=== PATIENT | male | born 1940 | race Caucasian/White ===

== ENCOUNTER → 2016-07-26 | Outpatient (REF) | payer MEDICARE ==
[~2016-07-26] MED LIST: ACET30TAB PO; ASPI-85 PO; ASPI81TA11 PO; CIPR500S PO; CLONPOW23 PO; COUM1TAB17 PO; DIGI1TAB3 PO; DIGO25TA PO; ENAL20TA PO; ENALAPRIL PO; GLIP5TAB15 PO; GLIPPOW PO; GLUC1CAP9 PO; GLUCOSAMINE PO; HYDROCHLOROTHIZIDE PO; KLON0.5T PO; METFORMIN PO; PROP80TA PO; PROPRANOLOL PO; SIMV40TA2 PO; SIMVPOW2 PO; WARF-22 PO; WARF-23 PO; WARFARIN PO
== END ==
LOC: M SMT 12:45
PROVIDERS: ATTEND Urology
DX: Z85.51 Personal history of malignant neoplasm of bladder (principal)

== ENCOUNTER → 2016-08-18 | Day surgery (SDC) | payer MEDICARE ==
[~2016-08-18] VITALS: Ht 167.6 cm; Wt 73.0 kg
[~2016-08-18] MED LIST changes: +LEVA500T PO; +LIDOCAINE 2% INJ 100 MG/5 ML SDV (FOR ANES.) As Ordered ONE; +LR 1,000 ML IV SCH; +MIDAZOLAM INJ 2 MG/2 ML VIAL (J2250) As Ordered ONE; +ONDANSETRON 4MG/2ML VIAL (J2405) As Ordered ONE; +ONDANSETRON 4MG/2ML VIAL (J2405) IV PRN; +PERCOCET 5MG/325MG TAB PO PRN; +PROPOFOL 200 MG/20 ML VIAL As Ordered ONE; +TYLE650T35 PO; +ePHEDrine SULFATE 25 MG/5 ML(5MG/ML) SYRINGE As Ordered ONE; +fentaNYL 100 MCG/2 ML INJECTION (J3010) As Ordered ONE; +fentaNYL 100 MCG/2 ML INJECTION (J3010) IV PRN; +mitoMYcin 40 MG VIAL (J9280) INTRAVESIC ONE
[2016-08-18 09:25] LABS: INR 1.1
[2016-08-18 15:30] VITALS: BP 152/66
--- NOTE | 2016-08-20 13:53 | RO ---
DATE OF PROCEDURE: 08/18/2016 PREOPERATIVE DIAGNOSIS: Papillary bladder tumor. POSTOPERATIVE DIAGNOSIS: Papillary bladder tumor. SURGERY PERFORMED: Cystoscopy, plus bipolar transurethral resection of bladder tumor, plus exam under anesthesia, plus mitomycin C instillation 40 mg. SURGEON: Dr. Jose F Aldridge [employer] CONCRETE IRONWORKER: Dr. Jose Paulino, Resident, PGY-3 ANESTHESIA: General. COMPLICATIONS: None. ESTIMATED BLOOD LOSS: N/A. HISTORY OF PRESENT ILLNESS: 76-year-old male patient with a history of bladder cancer. He has recurrent bladder cancer. For this reason, we have consented him for a cystoscopy plus bilateral transurethral resection of bladder tumor (TURBT), plus exam under anesthesia, plus mitomycin C instillation. PROCEDURE DESCRIPTION: In a patient under general anesthesia in supine modified low lithotomy position, after prepping and draping the area of concern, which included the entire genitalia and abdomen, we introduced a cystoscope, #21-Armenian in diameter with a 30-degree lens. The fossa navicularis, penile urethra, bulbar urethra, membranous urethra, and prostatic urethra were totally normal. The bladder had now both ureteral orifice draining clear urine. Had a left diverticulum on the left side. The right lateral wall had a papillary tumor of about 2 cm in diameter. It was resected, and there was scar tissue in the dome of the bladder that was also resected for about 1 cm in diameter. All this tissue was sent for permanent pathology analysis. We then fulgurated the bladder and then placed a Valentino catheter, #20-Armenian, three-way, clamped the third way; and then after emptying the bladder, we actually placed the mitomycin C 40 mg into the bladder and clamped the Valentino catheter. PLAN: The patient will pass to recovery. He will have to contain the mitomycin C in his bladder for about 1-2 hours, switching position into right decubitus lateral, left decubitus lateral, prone, and supine every 15 minutes. Once this is performed, we will empty, put the Valentino to gravity, and connect the bag. He will go home with a Valentino catheter to gravity. He can come back on Tuesday for a voiding trial. He is going home with antibiotic and pain medication, also. There were no complications during surgery.
== END | disposition home or self-care (01) ==
LOC: M SDC 08:17
PROVIDERS: ATTEND Urology
DX: C67.9 Malignant neoplasm of bladder, unspecified (principal); I10 Essential (primary) hypertension; I48.91 Unspecified atrial fibrillation; E11.9 Type 2 diabetes mellitus without complications; G20 Parkinson's disease; E78.00 Pure hypercholesterolemia, unspecified; M12.9 Arthropathy, unspecified; C62.90 Malignant neoplasm of unspecified testis, unspecified whether descended or undescended; I69.320 Aphasia following cerebral infarction; Z79.899 Other long term (current) drug therapy; Z79.01 Long term (current) use of anticoagulants; Z92.21 Personal history of antineoplastic chemotherapy; Z96.651 Presence of right artificial knee joint; Z96.642 Presence of left artificial hip joint
CPT/HCPCS: 36415; 51720; 52224; 85610; 86850; 88305; J0690; J2250; J2405; J3010; J9280

== ENCOUNTER → 2016-11-22 | Outpatient (REF) | payer MEDICARE ==
[~2016-11-22] MED LIST changes: +ASPI-101 PO; -ASPI81TA11 PO; +GLIP1TAB49 PO; -GLIP5TAB15 PO; +LEVA1TAB2 PO; -LEVA500T PO; -LIDOCAINE 2% INJ 100 MG/5 ML SDV (FOR ANES.) As Ordered ONE; -LR 1,000 ML IV SCH; -MIDAZOLAM INJ 2 MG/2 ML VIAL (J2250) As Ordered ONE; -ONDANSETRON 4MG/2ML VIAL (J2405) As Ordered ONE; -ONDANSETRON 4MG/2ML VIAL (J2405) IV PRN; -PERCOCET 5MG/325MG TAB PO PRN; -PROPOFOL 200 MG/20 ML VIAL As Ordered ONE; -ePHEDrine SULFATE 25 MG/5 ML(5MG/ML) SYRINGE As Ordered ONE; -fentaNYL 100 MCG/2 ML INJECTION (J3010) As Ordered ONE; -fentaNYL 100 MCG/2 ML INJECTION (J3010) IV PRN; -mitoMYcin 40 MG VIAL (J9280) INTRAVESIC ONE
== END ==
LOC: M LAB REF 13:26
PROVIDERS: ATTEND Urology
DX: C67.9 Malignant neoplasm of bladder, unspecified (principal)

== ENCOUNTER → 2017-02-21 | Outpatient (REF) | payer MEDICARE | LOC: M SMT 17:11 | PROVIDERS: ATTEND Urology | DX: C67.9 Malignant neoplasm of bladder, unspecified (principal) ==

== ENCOUNTER → 2017-07-04 | Outpatient (REF) | payer MEDICARE | LOC: M SMT 16:59 | DX: Z85.51 Personal history of malignant neoplasm of bladder (principal) | CPT/HCPCS: 88108 ==

== ENCOUNTER 2018-01-25 11:45 | Day surgery (SDC) | payer MEDICARE ==
[~2018-01-25 11:45] MED LIST changes: -ACET30TAB PO; -ASPI-101 PO; -ASPI-85 PO; -CIPR500S PO; -CLONPOW23 PO; -COUM1TAB17 PO; -DIGI1TAB3 PO; -DIGO25TA PO; -ENAL20TA PO; -ENALAPRIL PO; -GLIP1TAB49 PO; -GLIPPOW PO; -GLUC1CAP9 PO; -GLUCOSAMINE PO; -HYDROCHLOROTHIZIDE PO; -KLON0.5T PO; -LEVA1TAB2 PO; +LIDOCAINE 1% MDV 20ML VIAL SQ; -METFORMIN PO; -PROP80TA PO; -PROPRANOLOL PO; -SIMV40TA2 PO; -SIMVPOW2 PO; -TYLE650T35 PO; -WARF-22 PO; -WARF-23 PO; -WARFARIN PO
[2018-01-25 12:21] LABS: INR 1.04; PROTHROMBIN TIME 13.7 SECONDS (12.1-14.4)
[2018-01-25 12:29] LABS: BEDSIDE GLUCOSE 181 MG/DL (83-110)
[2018-01-25] MEDS: LR 1,000 ML IV (12:41)
[2018-01-25] MEDS ORDERED: GLYCOPYRROLATE INJ 0.2 MG/ML 2 ML VIAL As Ordered ×2 (13:28)
[2018-01-25] MEDS ORDERED: NEOSTIGMINE 10 MG/10 ML VIAL (J2710) As Ordered (13:28)
[2018-01-25] MEDS ORDERED: LIDOCAINE 2% INJ 100 MG/5 ML SDV (FOR ANES.) As Ordered (13:28)
[2018-01-25] MEDS ORDERED: ROCURONIUM BROMIDE 50 MG/5 ML VIAL As Ordered (13:28)
[2018-01-25] MEDS ORDERED: fentaNYL 100 MCG/2 ML INJECTION (J3010) As Ordered (13:28)
[2018-01-25] MEDS ORDERED: PROPOFOL 200 MG/20 ML VIAL As Ordered (13:28)
[2018-01-25] MEDS ORDERED: ONDANSETRON 4MG/2ML VIAL (J2405) As Ordered (13:28)
[2018-01-25] MEDS ORDERED: ONDANSETRON 4MG/2ML VIAL (J2405) IV (14:00)
[2018-01-25] MEDS ORDERED: NORCO, ANEXSIA 5/325MG TABLET (HYDROcodone/ACETAMINOPHEN) PO (14:00)
[2018-01-25] MEDS ORDERED: ACETAMINOPHEN 650MG ER TAB (TYLENOL ARTHRITIS) PO (14:00)
[2018-01-25] MEDS ORDERED: fentaNYL 100 MCG/2 ML INJECTION (J3010) IV (14:00)
[2018-01-25] MEDS ORDERED: LR 1,000 ML IV (14:00)
[2018-01-25] MEDS ORDERED: BACTRIM 160MG/800MG DS TAB PO (21:00)
== END 2018-01-25 15:44 | disposition home or self-care (01) ==
LOC: M SDC 11:45
DX: D49.4 Neoplasm of unspecified behavior of bladder (principal); I48.2 Chronic atrial fibrillation; I11.9 Hypertensive heart disease without heart failure; R94.31 Abnormal electrocardiogram [ECG] [EKG]; I35.0 Nonrheumatic aortic (valve) stenosis; I34.0 Nonrheumatic mitral (valve) insufficiency; I77.810 Thoracic aortic ectasia; I65.23 Occlusion and stenosis of bilateral carotid arteries; I70.1 Atherosclerosis of renal artery; E78.00 Pure hypercholesterolemia, unspecified; E11.9 Type 2 diabetes mellitus without complications; M12.9 Arthropathy, unspecified; I69.920 Aphasia following unspecified cerebrovascular disease; N40.0 Benign prostatic hyperplasia without lower urinary tract symptoms; Z79.899 Other long term (current) drug therapy; Z79.01 Long term (current) use of anticoagulants; Z79.82 Long term (current) use of aspirin; Z79.84 Long term (current) use of oral hypoglycemic drugs; Z85.51 Personal history of malignant neoplasm of bladder; Z92.21 Personal history of antineoplastic chemotherapy; Z85.49 Personal history of malignant neoplasm of other male genital organs; Z96.642 Presence of left artificial hip joint; Z96.651 Presence of right artificial knee joint; Z95.828 Presence of other vascular implants and grafts
CPT/HCPCS: 52224

== ENCOUNTER → 2018-05-02 | Outpatient (REF) | payer MEDICARE | LOC: M SMT 13:36 | DX: C67.9 Malignant neoplasm of bladder, unspecified (principal) | CPT/HCPCS: 88108 ==

== ENCOUNTER → 2018-09-18 | Outpatient (REF) | payer MEDICARE ==
[~2018-09-18] MED LIST changes: +ACET-716 PO; +ASPI-225 PO; +ASPI-85 PO; +ASPI81TA21 PO; +BACT800T5 PO; +CIPR500S PO; +CLONPOW23 PO; +COUM1TAB17 PO; +COUM7.5T PO; +DIGI1TAB3 PO; +DIGO25TA PO; +ENAL20TA PO; +ENALAPRIL PO; +GLIP5TAB20 PO; +GLIPPOW PO; +GLUC1CAP9 PO; +GLUCOSAMINE PO; +HYDR25TAB PO; +HYDROCHLOROTHIZIDE PO; +KLON0.5T PO; +LEVA1TAB2 PO; -LIDOCAINE 1% MDV 20ML VIAL SQ; +METF10004 PO; +METFORMIN PO; +PROP80TA PO; +PROPRANOLOL PO; +SIMV40TA2 PO; +SIMVPOW2 PO; +TYLE650T35 PO; +WARF-22 PO; +WARF-23 PO; +WARFARIN PO
== END ==
LOC: M SMT 17:00
PROVIDERS: ATTEND Urology
DX: C67.9 Malignant neoplasm of bladder, unspecified (principal)

== ENCOUNTER → 2018-12-11 | Outpatient (CLI) | payer MEDICARE ==
--- NOTE | 2018-12-11 18:37 | REP ---
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 Comparison study: December 19, 2013. Findings: Reversal of flow is seen in the right vertebral artery. Normal direction of flow was observed in the left vertebral artery. This raises a question of right sided subclavian stenosis, subclavian steal phenomenon. Right carotid: The right common carotid artery shows moderate mixed plaquing. There is extensive mixed plaquing in the bulb proximal ICA and proximal ECA on the right side on two-dimensional scanning. Color flow and spectral Doppler interrogation shows normal waveforms and velocities in the ICA. Stenotic flow velocities are observed in the ECA. Velocity chart right carotid: Right CCA PSV 87 cm/S right ICA PSV 120, BLAIR 45 right, ECA PSV 162, right ICA/CCA ratio 1.4. Right ICA Doppler velocities have not increased significantly from the prior study. Impression: Extensive mixed plaquing. 16-49% category narrowing by Doppler velocity criteria, probably near the upper portion of this range. Left carotid: Left common carotid artery shows moderate mixed plaquing. There is extensive mixed plaquing in the bulb, proximal ICA and proximal ECA on two-dimensional scanning on the left side. There is shadowing plaque which limits Doppler evaluation somewhat. A high velocity jet could not be identified but an area of slow flow in the mid ICA on the left raises concern for decreased flow post stenosis. Velocity chart left carotid: Left CCA PSV 116 cm/S, left ICA PSV 65, EDV 11, left ECA PSV 147, left ICA/CCA ratio 0.6. Impression: Slow flow in the left ICA with extensive calcific and mixed plaquing question slow flow post stenosis. Similar velocities were achieved previously. Consider CT or MR angiography. Electronically Signed by Sekou Jean Baptiste MD 12/12/2018 04:42 P
== END ==
LOC: M RAD 09:50
PROVIDERS: ATTEND Surgery Vascular Surgery
DX: I65.21 Occlusion and stenosis of right carotid artery (principal)

== ENCOUNTER → 2019-01-01 | Outpatient (REF) | payer MEDICARE ==
[~2019-01-01] MED LIST changes: +ASPI81TA85 PO; +ATEN50TA2 PO; +B COTAB3 PO; +DIGO0.25 PO; +GLIP-163 PO; +GLUCCAP23 PO; +JANT5TAB PO; +ROPI0.253 PO
== END ==
LOC: M SMT 13:06
PROVIDERS: ATTEND Urology
DX: C67.9 Malignant neoplasm of bladder, unspecified (principal)

== ENCOUNTER 2019-01-22 07:59 | Day surgery (SDC) | payer MEDICARE ==
[~2019-01-22] VITALS: Ht 170.2 cm; Wt 70.7 kg
[2019-01-22] MEDS ORDERED: PROPOFOL 200 MG/20 ML VIAL As Ordered ONE (08:15)
[2019-01-22] MEDS ORDERED: LIDOCAINE 2% INJ 100 MG/5 ML SDV (FOR ANES.) As Ordered ONE (08:15)
[2019-01-22] MEDS ORDERED: dexameTHASONE 4 MG/ML 1ML VIAL (J1100) As Ordered ONE (08:16)
[2019-01-22] MEDS ORDERED: fentaNYL 100 MCG/2 ML INJECTION (J3010) As Ordered ONE (08:16)
[2019-01-22] MEDS ORDERED: ONDANSETRON 4MG/2ML VIAL (J2405) As Ordered ONE (08:16)
[2019-01-22] MEDS ORDERED: MIDAZOLAM INJ 2 MG/2 ML VIAL (J2250) As Ordered ONE (08:16)
[2019-01-22] MEDS ORDERED: ceFAZolin 2 GM/D5W 50 ML IV BAG (J0690 PER 500MG) As Ordered ONE (08:53)
[2019-01-22 09:22] LABS: INR 1.21
[2019-01-22] MEDS ORDERED: ESMOLOL INJ 100MG/10ML VIAL As Ordered ONE (09:30)
[2019-01-22] MEDS ORDERED: METOPROLOL 5 MG/5 ML VIAL As Ordered ONE (09:31)
[2019-01-22] MEDS ORDERED: hydrALAZINE INJ 20 MG/ML VIAL As Ordered ONE (09:39)
[2019-01-22] MEDS ORDERED: mitoMYcin 40MG VIAL (J9280 PER 5MG) INTRAVESIC ONE (10:00)
[2019-01-22] MEDS ORDERED: ROCURONIUM BROMIDE 50 MG/5 ML VIAL As Ordered ONE (10:56)
[2019-01-22] MEDS ORDERED: SUGAMMADEX SODIUM 500 MG/5 ML VIAL (BRIDION) As Ordered ONE (11:06)
[2019-01-22] MEDS ORDERED: ACETAMINOPHEN 1000MG 100ML IV BTL (OFIRMEV) (J0131 PER 10MG) As Ordered ONE (11:06)
[2019-01-22] MEDS ORDERED: METOCLOPRAMIDE INJ 10MG/2ML VIAL (J2765) IV PRN (12:00)
[2019-01-22] MEDS ORDERED: ACETAMINOPHEN TAB 650MG DOSE (2X325MG) PO PRN (12:00)
[2019-01-22] MEDS ORDERED: fentaNYL 100 MCG/2 ML INJECTION (J3010) IV PRN (12:00)
[2019-01-22] MEDS ORDERED: PROMETHAZINE INJ 25 MG/ML VIAL (J2550) IV PRN (12:00)
[2019-01-22] MEDS ORDERED: oxyCODONE 5MG TAB PO PRN (12:00)
[2019-01-22] MEDS ORDERED: LR 1,000 ML IV SCH (12:00)
[2019-01-22 14:20] VITALS: BP 158/86
--- NOTE | 2019-01-24 12:36 | RO ---
DATE OF PROCEDURE: 01/22/2019 PREPROCEDURE DIAGNOSIS: Bladder cancer. POSTPROCEDURE DIAGNOSIS: Bladder cancer. PROCEDURE: Cystoscopy, transurethral resection of bladder tumor (between 2 and 5 cm), intravesical mitomycin C instillation. SURGEON: Sharath Ritchie MD TROUBLE TRACER: None. ANESTHESIA: General. OPERATIVE INDICATIONS: This is a 78-year-old male who has a long history of low-grade bladder cancer, status post several transurethral resection of bladder tumors previously. He has also received BCG previously. On recent office cystoscopy, he was found to have a few patches of papillary tumors in the anterior and posterior bladder sales. He is brought to the operating room today for the above-listed procedure. DESCRIPTION OF PROCEDURE: The patient was brought to the operating room, and general anesthesia was induced. Prophylactic antibiotics were infused. The patient was then placed in the dorsal lithotomy position and prepped and draped in the usual sterile fashion. At this point, a resectoscope was inserted into the urethral meatus and advanced into the bladder. The bladder was thoroughly examined, and the only abnormality that was seen were a few patches of papillary tumors on the posterior and anterior bladder sales. These tumors were completely resected using a gyrus loop. All of the specimen was then removed from the bladder using an Lexara evacuator. The base of resection was cauterized using the coagulation current. Once satisfied with hemostasis and satisfied that all the tumors were removed, the resectoscope was removed. I then inserted an 18-Macedonian three-way catheter and inflated the balloon with 30 mL of sterile water. The irrigation port was hooked up to a bag, which was clamped. I then instilled 40 mg in 40 mL of sterile water of mitomycin C into the bladder using the catheter. Once that was instilled, the catheter plug was attached to the catheter, and this marked the conclusion of the procedure. The patient was then taken out of the dorsal lithotomy position, awakened from anesthesia, and transported to the recovery room in stable condition. ESTIMATED BLOOD LOSS: 5 mL. COMPLICATIONS: None. SPECIMENS: Bladder tumors. PLAN: Will keep the mitomycin C in the patient's bladder for approximately 1 hour, and then it will be drained out in the recovery room. I will have him followup in the clinic in approximately 1 week to discuss pathology results and for catheter removal.
== END 2019-01-22 14:25 | disposition home or self-care (01) ==
LOC: M SDC 07:59
PROVIDERS: ATTEND Urology
DX: C67.4 Malignant neoplasm of posterior wall of bladder (principal); C67.3 Malignant neoplasm of anterior wall of bladder; I48.91 Unspecified atrial fibrillation; Z79.01 Long term (current) use of anticoagulants; Z79.82 Long term (current) use of aspirin; I10 Essential (primary) hypertension; E78.5 Hyperlipidemia, unspecified; E11.9 Type 2 diabetes mellitus without complications; Z86.73 Personal history of transient ischemic attack (TIA), and cerebral infarction without residual deficits; Z92.21 Personal history of antineoplastic chemotherapy; Z87.891 Personal history of nicotine dependence
CPT/HCPCS: 36415; 51720; 52235; 85610; 88305; J0131; J0690; J1100; J2250; J2405; J3010; J9280

== ENCOUNTER → 2019-06-26 | Outpatient (REF) | payer MEDICARE ==
[~2019-06-26] MED LIST changes: -ASPI-225 PO; +ASPI81TA78 PO; -DIGO0.25 PO; +DIGO0.253 PO; -SIMV40TA2 PO; +SIMV40TA20 PO
== END ==
LOC: M SMT 12:27
PROVIDERS: ATTEND Urology
DX: C67.9 Malignant neoplasm of bladder, unspecified (principal)

== ENCOUNTER → 2019-09-24 | Outpatient (REF) | payer MEDICARE | LOC: M LAB REF 21:30 | PROVIDERS: ATTEND Urology | DX: C67.9 Malignant neoplasm of bladder, unspecified (principal) ==

== ENCOUNTER → 2020-01-30 | Outpatient (CLI) | payer MEDICARE ==
[~2020-01-30] MED LIST changes: +ACET650T61 PO; -ASPI81TA85 PO; +ASPI81TA86 PO; -COUM7.5T PO; +COUM7.5T6 PO; -ENAL20TA PO; +ENAL20TA11 PO; -TYLE650T35 PO
--- NOTE | 2020-02-07 13:05 | REP ---
DUPLEX CAROTID SONOGRAPHY HISTORY: Occlusion and stenosis. COMPARISON: 12/11/2018. FINDINGS: Reverse flow is again noted in the right vertebral artery. Antegrade flow on the left. Findings suggest right-sided subclavian stenosis or occlusion. RIGHT CAROTID: The right common carotid artery shows intimal thickening and mixed plaquing. There is moderate mixed plaquing in the bulb proximal ICA and proximal ECA on the right side on two-dimensional scanning. Slightly stenotic flow velocity is observed in the ICA on the right and stenotic flow velocities are observed in the ECA on the right. ICA flow velocities are not increased significantly from the prior study. VELOCITY CHART RIGHT CAROTID PSV EDV CCA 84 cm/s ICA 128 cm/s 32 cm/s ECA 207 cm/s ICA/CCA ratio 1.5 (elevated) IMPRESSION: 50% to 69% category narrowing in the right internal carotid artery (ICA) by Doppler velocity criteria. Velocities have not increased since the prior study. LEFT CAROTID: There is moderate mixed plaquing in the left common carotid artery. Moderate mixed plaquing is seen in the bulb proximal ICA and proximal ECA. Extensive plaquing is seen. Velocities and waveforms remain normal on the left side, but despite extensive plaquing. These values are essentially unchanged. 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 Velocities have not increased since the prior study. Less than 50% narrowing by Doppler velocity criteria definitely near the upper end of this range. MTDD
== END ==
LOC: M RAD 08:26
PROVIDERS: ATTEND Surgery Vascular Surgery
DX: I65.22 Occlusion and stenosis of left carotid artery (principal)

== ENCOUNTER → 2020-02-01 | Outpatient (REF) | payer MEDICARE | LOC: M SMT 17:17 | PROVIDERS: ATTEND Urology | DX: C67.9 Malignant neoplasm of bladder, unspecified (principal) ==

== ENCOUNTER → 2020-07-21 | Outpatient (REF) | payer MEDICARE ==
[~2020-07-21] MED LIST changes: +HYDR-3490 PO; -HYDR25TAB PO
== END ==
LOC: M SMT 13:15
PROVIDERS: ATTEND Urology
DX: C67.9 Malignant neoplasm of bladder, unspecified (principal)

== ENCOUNTER → 2020-10-13 | Outpatient (REF) | payer MEDICARE | LOC: M SMT 13:15 | PROVIDERS: ATTEND Urology | DX: C67.9 Malignant neoplasm of bladder, unspecified (principal) ==

== ENCOUNTER → 2021-01-26 | Outpatient (REF) | payer MEDICARE | LOC: M SMT 13:11 | PROVIDERS: ATTEND Urology | DX: C67.9 Malignant neoplasm of bladder, unspecified (principal) ==

== ENCOUNTER → 2021-03-24 | Outpatient (CLI) | payer MEDICARE ==
--- NOTE | 2021-03-24 13:55 | REP ---
INDICATION: Assess stenosis TECHNIQUE: Carotid ultrasonography was performed bilaterally FINDINGS: Right: CCA systolic: 84.3 centimeters/second CCA diastolic: 10.4 centimeters/second ICA systolic: 107.4 centimeters/second ICA diastolic: 26.9 centimeters/second ICA CCA ratio: 1.3 Left: CCA systolic: 132.2 centimeters/second CCA diastolic: Reported at 0.7 centimeters/second ICA systolic: 127.0 centimeters/second ICA diastolic: 30.9 centimeters/second ICA CCA ratio: 1.0 Vertebral artery: Right: Antegrade flow left: Antegrade flow The technologist has written on the worksheet that the left ICA CCA ratios likely inaccurate due to a 3: 1 stenosis seen in the common carotid artery proximally to distally. Severely decreased flow is seen in the distal most visualized portion of the left internal carotid artery as well. IMPRESSION: According to the SRU criteria there is less than 50% stenosis in the right internal carotid artery. There is 50-69% stenosis in left internal carotid artery. This is secondary to both calcified and noncalcified atheromatous plaque formation. <Electronically signed by Kyle Bernal > 03/24/21 [id number]
== END ==
LOC: M RAD 12:17
PROVIDERS: ATTEND Surgery Vascular Surgery
DX: I65.21 Occlusion and stenosis of right carotid artery (principal)

== ENCOUNTER → 2021-08-04 | Outpatient (REF) | payer MEDICARE | LOC: M SMT 16:54 | PROVIDERS: ATTEND Urology | DX: C67.9 Malignant neoplasm of bladder, unspecified (principal) ==

== ENCOUNTER → 2021-11-05 | Outpatient (CLI) | payer MEDICARE ==
[~2021-11-05] MED LIST changes: +BAYE81TA10 PO; +CARB25TA9 PO; +CLON0.5T2 PO; +DIGO0.123 PO; +ENAL-36 PO; +FERR32TA PO; +PANT40TA29 PO; +PROP120C PO; +VITATAB73 PO; +WARF-18 PO; +WARF4TAB51 PO
== END ==
LOC: M LABSMTC 10:50
PROVIDERS: ATTEND Anesthesiology
DX: Z11.52 Encounter for screening for COVID-19 (principal); Z20.822 Contact with and (suspected) exposure to COVID-19

== ENCOUNTER 2021-11-10 08:27 | Day surgery (SDC) | payer MEDICARE ==
[~2021-11-10] VITALS: Ht 167.6 cm; Wt 60.8 kg
[~2021-11-10 08:27] MED LIST changes: +LIDOCAINE 2% 100MG/5ML SDV (FOR ANES.) As Ordered ONE; +LR 1,000 ML IV SCH; +MIDAZOLAM INJ 2MG/2ML VIAL (J2250 PER 1MG) As Ordered ONE; +ROCURONIUM BROMIDE 50 MG/5 ML VIAL As Ordered ONE; +fentaNYL 250 MCG/5 ML INJECTION As Ordered ONE; +propofoL 200 MG/20 ML VIAL As Ordered ONE
[2021-11-10] MEDS ORDERED: LR 1,000 ML IV SCH ×2 (08:40→12:05)
[2021-11-10 09:06] LABS: PROTHROMBIN TIME 13.6 SECONDS (12.7-14.5)
[2021-11-10] MEDS ORDERED: BUPIVACAINE HCL 0.25% 30ML VIAL As Ordered ONE (09:12)
[2021-11-10] MEDS ORDERED: INSULIN LISPRO (NovoLOG) PER UNIT SC PRN (09:50)
[2021-11-10] MEDS ORDERED: PHENYLephrine 500MCG 5ML (100MCG/ML) SYRINGE As Ordered ONE (10:18)
[2021-11-10] MEDS ORDERED: dexameTHASONE 4 MG/ML 1ML VIAL (J1100 PER 1MG) As Ordered ONE (10:23)
[2021-11-10] MEDS ORDERED: ePHEDrine SULFATE 25 MG/5 ML(5MG/ML) SYRINGE As Ordered ONE (10:33)
[2021-11-10] MEDS ORDERED: GLYCOPYRROLATE INJ 0.2 MG/ML 2 ML VIAL As Ordered ONE (10:34)
[2021-11-10] MEDS ORDERED: ONDANSETRON 4MG/2ML VIAL As Ordered ONE (10:48)
[2021-11-10] MEDS ORDERED: ACETAMINOPHEN 1000MG 100ML IV BTL (OFIRMEV) (J0131 PER 10MG) As Ordered ONE (10:48)
[2021-11-10] MEDS ORDERED: oxyCODONE 5MG TAB PO PRN (12:05)
[2021-11-10] MEDS ORDERED: MORPHINE 2 MG/ML 1ML VIAL IV PRN (12:05)
[2021-11-10] MEDS ORDERED: ONDANSETRON 4MG/2ML VIAL IV PRN (12:05)
[2021-11-10] MEDS ORDERED: fentaNYL 100 MCG/2 ML INJECTION IV PRN (12:05)
[2021-11-10] MEDS ORDERED: ACETAMINOPHEN TAB 650MG DOSE (2X325MG) PO PRN (12:50)
[2021-11-10] MEDS ORDERED: NORCO, ANEXSIA 5/325MG TABLET (HYDROcodone/ACETAMINOPHEN) PO PRN (12:50)
[2021-11-10 14:30] VITALS: BP 152/80
== END 2021-11-10 14:41 | disposition home or self-care (01) ==
LOC: M SDC 08:27
PROVIDERS: ATTEND Surgery
DX: K40.90 Unilateral inguinal hernia, without obstruction or gangrene, not specified as recurrent (principal); I48.91 Unspecified atrial fibrillation; I10 Essential (primary) hypertension; E78.5 Hyperlipidemia, unspecified; E11.9 Type 2 diabetes mellitus without complications; N40.0 Benign prostatic hyperplasia without lower urinary tract symptoms; Z87.891 Personal history of nicotine dependence; Z92.21 Personal history of antineoplastic chemotherapy; Z85.51 Personal history of malignant neoplasm of bladder; D64.9 Anemia, unspecified; Z79.01 Long term (current) use of anticoagulants; Z79.899 Other long term (current) drug therapy; Z79.82 Long term (current) use of aspirin; Z79.84 Long term (current) use of oral hypoglycemic drugs
CPT/HCPCS: 36415; 49650; 85610; C1781; J0131; J1100; J1815; J2250; J2370; J2405; J3010; S2900

== ENCOUNTER → 2022-03-01 | Outpatient (REF) | payer MEDICARE ==
[~2022-03-01] MED LIST changes: -LIDOCAINE 2% 100MG/5ML SDV (FOR ANES.) As Ordered ONE; -LR 1,000 ML IV SCH; -MIDAZOLAM INJ 2MG/2ML VIAL (J2250 PER 1MG) As Ordered ONE; -ROCURONIUM BROMIDE 50 MG/5 ML VIAL As Ordered ONE; -fentaNYL 250 MCG/5 ML INJECTION As Ordered ONE; -propofoL 200 MG/20 ML VIAL As Ordered ONE
== END ==
LOC: M SMT 12:46
PROVIDERS: ATTEND Urology
DX: C67.9 Malignant neoplasm of bladder, unspecified (principal)

== ENCOUNTER → 2022-03-31 | Outpatient (CLI) | payer MEDICARE | LOC: M RAD 11:32 | PROVIDERS: ATTEND Surgery Vascular Surgery | DX: I65.29 Occlusion and stenosis of unspecified carotid artery (principal) ==

== ENCOUNTER → 2022-08-31 | Outpatient (REF) | payer MEDICARE ==
[~2022-08-31] MED LIST changes: -ENAL-36 PO; +ENAL1TAB50 PO
== END ==
LOC: M SMT 17:31
PROVIDERS: ATTEND Urology
DX: C67.9 Malignant neoplasm of bladder, unspecified (principal)

== ENCOUNTER → 2023-05-23 | Outpatient (REF) | payer MEDICARE ==
[~2023-05-23] MED LIST changes: +ENAL1TAB52 PO; -ENAL20TA11 PO; +MAGN400C PO; -ROPI0.253 PO; +ROPI5TAB19 PO
== END ==
LOC: M SMT 17:33
PROVIDERS: ATTEND Urology
DX: C67.9 Malignant neoplasm of bladder, unspecified (principal)

== ENCOUNTER → 2023-05-24 | Outpatient (CLI) | payer MEDICARE | LOC: M RAD 09:20 | PROVIDERS: ATTEND Physician Assistant | DX: I65.23 Occlusion and stenosis of bilateral carotid arteries (principal) ==

== ENCOUNTER → 2023-05-24 | Outpatient (CLI) | payer MEDICARE ==
[2023-05-24 11:27] LABS: HEMATOCRIT 34.1 % (42.0-52.0); HEMOGLOBIN 10.8 g/dl (13.5-17.5); MEAN CORPUSCULAR HGB CONC 31.7 g/dl (32.0-36.5); MEAN CORPUSCULAR VOLUME 91.7 fl (80.0-96.0); PLATELET COUNT, AUTOMATED 175 10^3/uL (150-450); RED BLOOD COUNT 3.72 10^6/uL (4.30-6.10); WHITE BLOOD COUNT 6.4 10^3/uL (4.0-10.0)
[2023-05-24 11:45] LABS: BLOOD UREA NITROGEN 28 MG/DL (9-23); CALCIUM LEVEL 9.8 MG/DL (8.3-10.6); CARBON DIOXIDE LEVEL 29 MMOL/L (20-31); CHLORIDE LEVEL 109 MMOL/L (98-107); CREATININE FOR GFR 0.98 MG/DL (0.70-1.30); GLOMERULAR FILTRATION RATE > 60.0 (>35); GLUCOSE, FASTING 155 MG/DL (74-106); SODIUM LEVEL 145 MMOL/L (136-145)
== END ==
LOC: M RAD 09:24
PROVIDERS: ATTEND Urology
DX: Z01.818 Encounter for other preprocedural examination (principal); C67.9 Malignant neoplasm of bladder, unspecified; N39.0 Urinary tract infection, site not specified; I65.23 Occlusion and stenosis of bilateral carotid arteries; I51.7 Cardiomegaly; J84.10 Pulmonary fibrosis, unspecified; I48.91 Unspecified atrial fibrillation

== ENCOUNTER 2023-05-27 09:07 | Day surgery (SDC) | payer MEDICARE ==
[~2023-05-27] VITALS: Ht 167.6 cm; Wt 59.9 kg
[~2023-05-27 09:07] MED LIST changes: +ceFAZolin SOD 2 GM in IV 1 EA IV ONE
[2023-05-27] MEDS ORDERED: LR 1,000 ML IV SCH (09:35)
[2023-05-27 10:32] LABS: INR 1.18; PROTHROMBIN TIME 14.6 SECONDS (12.5-14.5)
[2023-05-27] MEDS ORDERED: fentaNYL 100 MCG/2 ML INJECTION As Ordered ONE ×2 (10:56→14:39)
[2023-05-27] MEDS ORDERED: LIDOCAINE 2% 100MG/5ML SDV (FOR ANES.) As Ordered ONE (10:56)
[2023-05-27] MEDS ORDERED: propofoL 200 MG/20 ML VIAL As Ordered ONE (10:56)
[2023-05-27] MEDS ORDERED: ONDANSETRON 4MG 2ML VIAL As Ordered ONE (10:56)
[2023-05-27] MEDS ORDERED: ROCURONIUM BROMIDE 50MG/5ML VIAL As Ordered ONE (10:56)
[2023-05-27] MEDS ORDERED: KETOROLAC 60MG 2ML VIAL As Ordered ONE (11:10)
[2023-05-27] MEDS ORDERED: fentaNYL 100 MCG/2 ML INJECTION IV PRN (13:10)
[2023-05-27] MEDS ORDERED: MORPHINE 2 MG/ML 1ML VIAL IV PRN (13:10)
[2023-05-27] MEDS ORDERED: oxyCODONE 5MG TAB PO PRN (13:10)
[2023-05-27] MEDS ORDERED: ONDANSETRON 4MG 2ML VIAL IV PRN (13:10)
[2023-05-27] MEDS ORDERED: FUROSEMIDE 100MG/10ML VIAL As Ordered ONE (14:39)
[2023-05-27 14:45] VITALS: BP 157/78; TEMP 98.6; O2SAT 97
== END 2023-05-27 15:05 | disposition home or self-care (01) ==
LOC: M SDC 09:07
PROVIDERS: ATTEND Urology
DX: C67.4 Malignant neoplasm of posterior wall of bladder (principal); I48.91 Unspecified atrial fibrillation; E11.9 Type 2 diabetes mellitus without complications; Z86.73 Personal history of transient ischemic attack (TIA), and cerebral infarction without residual deficits; I10 Essential (primary) hypertension; E78.00 Pure hypercholesterolemia, unspecified; Z79.899 Other long term (current) drug therapy; Z79.82 Long term (current) use of aspirin; Z79.01 Long term (current) use of anticoagulants; Z87.891 Personal history of nicotine dependence
CPT/HCPCS: 36415; 52234; 85610; 88305; J0690; J1100; J1885; J1940; J2405; J3010

== ENCOUNTER → 2023-07-06 | Outpatient (CLI) | payer MEDICARE ==
[~2023-07-06] MED LIST changes: -ceFAZolin SOD 2 GM in IV 1 EA IV ONE
== END ==
LOC: M ONCR 12:42
PROVIDERS: ATTEND General Practice
DX: C67.8 Malignant neoplasm of overlapping sites of bladder (principal); Z87.891 Personal history of nicotine dependence; Z71.2 Person consulting for explanation of examination or test findings; Z79.01 Long term (current) use of anticoagulants; Z79.82 Long term (current) use of aspirin; Z79.84 Long term (current) use of oral hypoglycemic drugs; Z79.899 Other long term (current) drug therapy; Z98.62 Peripheral vascular angioplasty status

== ENCOUNTER 2023-07-27 13:29 | Outpatient (RCR) | payer MEDICARE ==
[~2023-07-27 13:29] MED LIST changes: -KLON0.5T PO; +KLON0.5T8 PO
== END 2023-08-04 ==
LOC: M ONCR 13:29
PROVIDERS: ATTEND General Practice
DX: Z51.0 Encounter for antineoplastic radiation therapy (principal); C67.8 Malignant neoplasm of overlapping sites of bladder

== ENCOUNTER 2023-09-02 10:00 | Outpatient (RCR) | payer MEDICARE | END 2023-09-04 | LOC: M ONCR 10:00 | PROVIDERS: ATTEND General Practice | DX: Z51.0 Encounter for antineoplastic radiation therapy (principal); C67.8 Malignant neoplasm of overlapping sites of bladder ==

== ENCOUNTER 2023-09-09 10:09 | Outpatient (RCR) | payer MEDICARE | END 2023-10-04 | LOC: M ONCR 10:09 | PROVIDERS: ATTEND General Practice | DX: Z51.0 Encounter for antineoplastic radiation therapy (principal); C67.8 Malignant neoplasm of overlapping sites of bladder ==

== ENCOUNTER → 2023-10-10 | Outpatient (REF) | payer MEDICARE | LOC: M SMT 12:33 | PROVIDERS: ATTEND Urology | DX: C67.9 Malignant neoplasm of bladder, unspecified (principal) ==

== ENCOUNTER → 2023-10-19 | Outpatient (CLI) | payer MEDICARE ==
[2023-10-19 12:07] LABS: ALBUMIN 3.2 G/DL (3.2-5.2); ALKALINE PHOSPHATASE 76 U/L (46-116); ALT/SGPT 23 U/L (7.0-40); AST/SGOT 40 U/L (<34); BILIRUBIN,TOTAL 0.9 MG/DL (0.3-1.2); BLOOD UREA NITROGEN 21 MG/DL (9-23); CALCIUM LEVEL 9.1 MG/DL (8.3-10.6); CARBON DIOXIDE LEVEL 28 MMOL/L (20-31); CHLORIDE LEVEL 106 MMOL/L (98-107); CREATININE FOR GFR 1.03 MG/DL (0.70-1.30); GLOMERULAR FILTRATION RATE > 60.0 (>35); GLUCOSE, FASTING 154 MG/DL (74-106); POTASSIUM SERUM 4.7 MMOL/L (3.5-5.1); SODIUM LEVEL 141 MMOL/L (136-145); TOTAL PROTEIN 6.3 G/DL (5.7-8.2)
== END ==
LOC: M ONCR 09:56 → M ONCM 09:56
PROVIDERS: ATTEND General Practice
DX: C67.8 Malignant neoplasm of overlapping sites of bladder (principal)

== ENCOUNTER → 2023-11-16 | Outpatient (CLI) | payer MEDICARE ==
[~2023-11-16] MED LIST changes: +GASTROGRAFIN SOLUTION 30ML As Ordered ONE; +ISOVUE-370 76% 100ML VIAL As Ordered ONE
== END ==
LOC: M RAD 11:29
PROVIDERS: ATTEND General Practice
DX: C67.8 Malignant neoplasm of overlapping sites of bladder (principal)
CPT/HCPCS: 74177; Q9963; Q9967

== ENCOUNTER → 2023-11-17 | Outpatient (CLI) | payer MEDICARE ==
[~2023-11-17] MED LIST changes: -GASTROGRAFIN SOLUTION 30ML As Ordered ONE; -ISOVUE-370 76% 100ML VIAL As Ordered ONE
== END ==
LOC: M ONCR 09:28
PROVIDERS: ATTEND General Practice
DX: C67.8 Malignant neoplasm of overlapping sites of bladder (principal); Z71.2 Person consulting for explanation of examination or test findings; Z87.891 Personal history of nicotine dependence; Z79.01 Long term (current) use of anticoagulants; Z79.82 Long term (current) use of aspirin; Z79.899 Other long term (current) drug therapy; Z92.3 Personal history of irradiation

== ENCOUNTER → 2024-02-01 | Outpatient (CLI) | payer MEDICARE | LOC: M EKG 09:35 | PROVIDERS: ATTEND Physician Assistant | DX: I48.21 Permanent atrial fibrillation (principal) ==

== ENCOUNTER → 2024-02-09 | Outpatient (CLI) | payer MEDICARE | LOC: M PLAIMG 11:12 | PROVIDERS: ATTEND Physician Assistant | DX: I34.0 Nonrheumatic mitral (valve) insufficiency (principal) ==

== ENCOUNTER → 2024-03-13 | Outpatient (REF) | payer MEDICARE | LOC: M SMT 17:11 | PROVIDERS: ATTEND Urology | DX: C67.9 Malignant neoplasm of bladder, unspecified (principal) ==

== ENCOUNTER → 2024-05-22 | Outpatient (CLI) | payer MEDICARE | LOC: M ONCR 08:41 | PROVIDERS: ATTEND General Practice | DX: C67.8 Malignant neoplasm of overlapping sites of bladder (principal); Z92.3 Personal history of irradiation; Z87.891 Personal history of nicotine dependence; Z79.01 Long term (current) use of anticoagulants; Z79.82 Long term (current) use of aspirin; Z79.899 Other long term (current) drug therapy ==

== ENCOUNTER → 2024-05-25 | Outpatient (CLI) | payer MEDICARE | LOC: M RAD 10:09 | PROVIDERS: ATTEND Physician Assistant | DX: I65.23 Occlusion and stenosis of bilateral carotid arteries (principal) ==

== ENCOUNTER → 2024-09-26 | Outpatient (CLI) | payer MEDICARE ==
[~2024-09-26] MED LIST changes: +GLIP-318 PO; -GLIP5TAB20 PO; +ISOVUE-370 76% 100ML VIAL As Ordered ONE
== END ==
LOC: M RAD 14:08
PROVIDERS: ATTEND Student in an Organized Health Care Education/Training Program
DX: R63.4 Abnormal weight loss (principal); J90 Pleural effusion, not elsewhere classified; J98.11 Atelectasis; I51.7 Cardiomegaly; I25.84 Coronary atherosclerosis due to calcified coronary lesion; Z95.2 Presence of prosthetic heart valve; J43.9 Emphysema, unspecified
CPT/HCPCS: 71260; 74177; Q9967

== ENCOUNTER 2024-10-05 10:29 | Outpatient (RCR) | payer MEDICARE ==
[2024-09-14 09:24] VITALS: BP 181/78; O2SAT 100
[2024-09-14 10:35] LABS: BASO % 0.2 % (0.0-1.0); EOS % 0.3 % (0.0-3.0); HEMATOCRIT 29.4 % (42.0-52.0); LYMPH # 0.9 10^3/uL (1.5-5.0); LYMPH % 7.6 % (24.0-44.0); MEAN CORPUSCULAR HEMOGLOBIN 27.4 pg (27.0-33.0); MEAN CORPUSCULAR HGB CONC 30.6 g/dl (32.0-36.5); MEAN CORPUSCULAR VOLUME 89.6 fl (80.0-96.0); MONO # 0.6 10^3/uL (0.0-0.8); MONO % 5.2 % (2.0-8.0); NEUTROPHILS # 9.6 10^3/uL (1.5-8.5); NEUTROPHILS % 85.8 % (36.0-66.0); PLATELET COUNT, AUTOMATED 332 10^3/uL (150-450); RED BLOOD COUNT 3.28 10^6/uL (4.30-6.10); WHITE BLOOD COUNT 11.2 10^3/uL (4.0-10.0)
[2024-09-14 11:04] LABS: LDH LACTATE DEHYDROGENASE 343 U/L (120-246)
[2024-09-14 11:05] LABS: IRON (FE) 21 UG/DL (65-175); PERCENT SATURATION 7.6 % (19.7-50.0); TOTAL IRON BINDING CAPACITY 276 UG/DL (250-425)
[2024-09-14 11:06] LABS: ALBUMIN 2.6 G/DL (3.2-5.2); ALKALINE PHOSPHATASE 131 U/L (40-129); ALT/SGPT 20 U/L (7.0-40); AST/SGOT 29 U/L (<34); BILIRUBIN,TOTAL 0.7 MG/DL (0.3-1.2); BLOOD UREA NITROGEN 28 MG/DL (9-23); CALCIUM LEVEL 8.7 MG/DL (8.3-10.6); CARBON DIOXIDE LEVEL 30 MMOL/L (20-31); CHLORIDE LEVEL 106 MMOL/L (98-107); CREATININE FOR GFR 0.84 MG/DL (0.70-1.30); GLOMERULAR FILTRATION RATE 86.5 (>35); GLUCOSE, FASTING 191 MG/DL (74-106); POTASSIUM SERUM 4.3 MMOL/L (3.5-5.1); SODIUM LEVEL 143 MMOL/L (136-145); TOTAL PROTEIN 6.7 G/DL (5.7-8.2)
[2024-09-14 11:07] LABS: FERRITIN 174.9 NG/ML (10.5-307.3)
[2024-09-14 11:08] LABS: FOLATE > 24.0 NG/ML (>5.4); VITAMIN B12 LEVEL 1065 PG/ML (211-911)
[2024-09-15 07:45] LABS: PROTEIN, TOTAL SO 6.9 g/dL (6.1-8.1)
[2024-09-17 10:18] LABS: HAPTOGLOBIN < 10 mg/dL (43-212)
[2024-09-17 13:48] LABS: FREE LAMBDA LIGHT CHAINS SERUM 90.6 mg/L (5.7-26.3); KAPPA/LAMBDA RATIO SERUM 1.08 (0.26-1.65)
[2024-09-17 17:32] LABS: COPPER PLASMA 134 mcg/dL (70-175); ZINC PLASMA 52 mcg/dL (60-130)
[2024-09-18 07:13] LABS: ALBUMIN SO 3.2 g/dL (3.8-4.8); ALPHA 1 GLOBULINS SO 0.5 g/dL (0.2-0.3); ALPHA 2 GLOBULINS SO 0.5 g/dL (0.5-0.9); BETA 2 GLOBULIN SO 0.7 g/dL (0.2-0.5); BETA GLOBULIN SO 0.6 g/dL (0.4-0.6); GAMMA GLOBULINS SO 1.5 g/dL (0.8-1.7)
[~2024-10-05] VITALS: Ht 170.2 cm; Wt 58.7 kg
[~2024-10-05 10:29] MED LIST changes: -ISOVUE-370 76% 100ML VIAL As Ordered ONE
[2024-10-05 10:42] VITALS: BP 147/69; O2SAT 98
[2024-10-05] MEDS: FERRIC CARBOXYMALTOSE INJ 750 MG, VIAL MATE ADAPTER 1 EACH in NS 100 ML IV SCH (12:07)
[2024-10-05] MEDS: SODIUM CHLORIDE 0.9% INJ 10 ML SYR IV PRN (12:23)
[2024-10-05 12:28] VITALS: BP 155/67; O2SAT 100
== END 2024-11-02 09:48 | disposition expired ==
LOC: M ONCM 11-02 09:48
PROVIDERS: ATTEND Student in an Organized Health Care Education/Training Program
DX: D50.9 Iron deficiency anemia, unspecified (principal); I10 Essential (primary) hypertension; E78.5 Hyperlipidemia, unspecified; E11.9 Type 2 diabetes mellitus without complications; I48.0 Paroxysmal atrial fibrillation; R63.4 Abnormal weight loss; Z79.01 Long term (current) use of anticoagulants; Z79.899 Other long term (current) drug therapy; Z86.73 Personal history of transient ischemic attack (TIA), and cerebral infarction without residual deficits; Z98.890 Other specified postprocedural states; D64.9 Anemia, unspecified
CPT/HCPCS: 36415; 80053; 82525; 82607; 82728; 82746; 83010; 83521; 83550; 83615; 84100; 84155; 84165; 84630; 85025; 85046; G0463; J1439